=== PATIENT | female | born 1945 | race Hispanic/Latino ===

== ENCOUNTER 2017-09-14 15:06 | Emergency (ER) | payer MEDICARE ==
[2017-09-14] MEDS ORDERED: DELTASONE PO NR (17:00)
--- NOTE | 2017-09-14 17:05 | Emergency Department Report ---
ED ENT HPI - General Chief complaint: Sore Throat Stated complaint: SOMETHING LODGE IN THROAT Time Seen by Provider: 09/14/17 16:36 Source: patient Mode of arrival: Ambulatory Limitations: No Limitations - History of Present Illness Initial comments: Patient is a 72-year-old female is complaining of sensation of something is in the back of her throat. Patient is constantly clearing her throat. Patient was eating some popcorn yesterday and thinks something may be stuck there. Patient took her fingertrap date this area out and that made the symptoms worse. Patient denies any fevers chills nausea vomiting at this time. - Related Data Previous Rx's Medication Instructions Recorded Last Taken Type Nystas/Diphen/Xyl Visc/Mylanta 20 ml MM Q4H #200 ml 09/14/17 Unknown Rx [Magic Mouthwash] predniSONE [Deltasone] 20 mg PO ONCE #3 tablet 09/14/17 Unknown Rx Allergies Allergy/AdvReac Type Severity Reaction Status Date / Time No Known Allergies Allergy Unverified 09/14/17 15:11 ED Dental HPI - General Chief complaint: Sore Throat Stated complaint: SOMETHING LODGE IN THROAT Time Seen by Provider: 09/14/17 16:36 Source: patient Mode of arrival: Ambulatory Limitations: No Limitations - Related Data Previous Rx's Medication Instructions Recorded Last Taken Type Nystas/Diphen/Xyl Visc/Mylanta 20 ml MM Q4H #200 ml 09/14/17 Unknown Rx [Magic Mouthwash] predniSONE [Deltasone] 20 mg PO ONCE #3 tablet 09/14/17 Unknown Rx Allergies Allergy/AdvReac Type Severity Reaction Status Date / Time No Known Allergies Allergy Unverified 09/14/17 15:11 ED Review of Systems ROS: Stated complaint: SOMETHING LODGE IN THROAT Other details as noted in HPI Comment: All other systems reviewed and negative ED Past Medical Hx - Past Medical History Previous Medical History?: Yes Hx Hypertension: Yes Hx Diabetes: Yes - Surgical History Past Surgical History?: Yes Additional Surgical History: Hysterectomy, right rotator cuff surgery - Social History Smoking Status: Former Smoker Substance Use Type: Prescribed - Medications Home Medications: Home Medications Medication Instructions Recorded Confirmed Last Taken Type Nystas/Diphen/Xyl Visc/Mylanta 20 ml MM Q4H #200 ml 09/14/17 Unknown Rx [Magic Mouthwash] predniSONE [Deltasone] 20 mg PO ONCE #3 tablet 09/14/17 Unknown Rx ED Physical Exam - General Limitations: No Limitations General appearance: alert, in no apparent distress - Head Head exam: Present: atraumatic, normocephalic - Eye Eye exam: Present: normal appearance - ENT ENT exam: Present: mucous membranes moist, other (patient's uvula is swollen and erythematous) - Neck Neck exam: Present: normal inspection - Respiratory Respiratory exam: Present: normal lung sounds bilaterally. Absent: respiratory distress - Cardiovascular Cardiovascular Exam: Present: regular rate, normal rhythm. Absent: systolic murmur, diastolic murmur, rubs, gallop - GI/Abdominal GI/Abdominal exam: Present: soft, normal bowel sounds - Extremities Exam Extremities exam: Present: normal inspection - Back Exam Back exam: Present: normal inspection - Neurological Exam Neurological exam: Present: alert, oriented X3 - Psychiatric Psychiatric exam: Present: normal affect, normal mood - Skin Skin exam: Present: warm, dry, intact, normal color. Absent: rash ED Course Vital Signs 09/14/17 15:11 Temperature 97.8 F Pulse Rate 72 Respiratory 20 Rate Blood Pressure 165/70 O2 Sat by Pulse 97 Oximetry ED Medical Decision Making - Medical Decision Making Patient's physical exam is suggestive of a uvulitis. Patient is diabetic however her last A1c was 6.1 she is well controlled with a blood sugar. The blue sheet do well with several days of prednisone. Patient be discharged home as well. Critical care attestation.: If time is entered above; I have spent that time in minutes in the direct care of this critically ill patient, excluding procedure time. ED Disposition Clinical Impression: Uvulitis Disposition: [id number] TO HOME OR SELFCARE Is pt being admited?: No Does the pt Need Aspirin: No Condition: Stable Instructions: Uvulitis (ED) Prescriptions: Nystas/Diphen/Xyl Visc/Mylanta [Magic Mouthwash] 20 ml MM Q4H #200 ml predniSONE [Deltasone] 20 mg PO ONCE #3 tablet Referrals: PRIMARY CARE, [Primary Care Provider] - 3-5 Days
[2017-09-14 17:23] VITALS: BP 158/70
== END 2017-09-14 17:21 | disposition home or self-care (01) ==
LOC: ED 15:06
DX: K12.2 Cellulitis and abscess of mouth (principal); I10 Essential (primary) hypertension; E11.9 Type 2 diabetes mellitus without complications; Z90.710 Acquired absence of both cervix and uterus; Z87.891 Personal history of nicotine dependence
CPT/HCPCS: 99282